=== PATIENT | male | born 1985 | race Caucasian/White ===

== ENCOUNTER 2019-05-25 09:40 | Emergency (ER) | payer SELFPAY ==
[~2019-05-25] VITALS: Ht 165.1 cm; Wt 86.3 kg
[2019-05-25] MEDS ORDERED: INHALER IH (09:54)
[2019-05-25] MEDS ORDERED: PredniSONE 20 MG TABLET PO ONE (10:30)
[2019-05-25] MEDS ORDERED: IPRATROPIUM BROMIDE 0.5 MG/2.5 ML NEB SOLUTION NEB ONE (10:30)
[2019-05-25] MEDS ORDERED: ALBUTEROL SULFATE 2.5 MG/0.5 ML NEB SOLUTION NEB ONE (10:30)
[2019-05-25 11:17] VITALS: BP 132/73
== END 2019-05-25 12:07 | disposition home or self-care (01) ==
LOC: EMS 09:42
DX: J20.9 Acute bronchitis, unspecified (principal); J45.909 Unspecified asthma, uncomplicated
CPT/HCPCS: 71045; 94640; 99283; J7512; 94060